=== PATIENT | male | born 1955 | race Hispanic/Latino ===

== ENCOUNTER → 2018-11-30 | Outpatient (CLI) | payer OTHER | END | disposition home or self-care (01) | LOC: EEVIPCON 10:23 → RAH 10:23 | PROVIDERS: ATTEND Internal Medicine | DX: S73.102A Unspecified sprain of left hip, initial encounter (principal); M79.89 Other specified soft tissue disorders; M47.819 Spondylosis without myelopathy or radiculopathy, site unspecified; X58.XXXA Exposure to other specified factors, initial encounter; Y93.89 Activity, other specified; Y92.89 Other specified places as the place of occurrence of the external cause; Y99.8 Other external cause status | CPT/HCPCS: 73502; 73552 ==